=== PATIENT | male | born 1975 | race Caucasian/White ===

== ENCOUNTER 2023-02-02 07:25 | Outpatient (CLI) | payer BC ==
[2023-02-02] MEDS ORDERED: Iopamidol 300 61% 100 ML VIAL FS ONE (10:21)
== END 2023-02-02 07:26 | disposition home or self-care (01) ==
LOC: CSHCT 07:25
PROVIDERS: ATTEND Family Medicine
DX: R31.29 Other microscopic hematuria (principal); N20.0 Calculus of kidney; K80.20 Calculus of gallbladder without cholecystitis without obstruction; J94.8 Other specified pleural conditions
CPT/HCPCS: 74178; 74410; Q9967